=== PATIENT | female | born 1935 | race Caucasian/White ===

== ENCOUNTER 2025-06-27 10:09 | Observation (INO) ==
[2025-06-27] MEDS ORDERED: IOPAMIDOL 100 ML BOTTLE IV ONE (10:10)
[2025-06-27] MEDS: 0.9 % SODIUM CHLORIDE 1,000 ML IV ONE (10:43)
[2025-06-27 11:28] LABS: Basophils # (Auto) 0.02 K/mcL (0.00-0.30); Basophils % (Auto) 0.3 % (0.0-2.0); Eosinophils # (Auto) 0.05 K/mcL (0.00-0.70); Eosinophils % (Auto) 0.8 % (0.0-7.0); Hematocrit 48.3 % (34.1-44.9); Hemoglobin 16.0 g/dL (11.2-15.7); Lymphocytes # (Auto) 0.80 K/mcL (1.50-4.80); Lymphocytes % (Auto) 12.2 % (15.5-49.0); Mean Corpuscular HGB Conc 33.1 g/dL (31.0-36.0); Monocytes # (Auto) 0.45 K/mcL (0.10-0.90); Monocytes % (Auto) 6.9 % (1.0-12.0); Neutrophils % (Auto) 79.6 % (38.0-78.0); Platelet Count 266 K/mcL (140-440); RBC 5.23 M/mcL (3.59-5.38); WBC 6.5 K/mcL (4.5-11.0)
[2025-06-27 11:48] LABS: ALT/SGPT 13 U/L (<40); AST/SGOT 22 U/L (<32); Albumin 4.2 gm/dL (3.2-5.2); Albumin/Globulin Ratio 1.7 (1.0-2.3); Alkaline Phosphatase 118 U/L (39-117); Anion Gap 9.0 (8.0-16.0); Bilirubin,Total 0.8 mg/dL (0.1-1.0); Blood Urea Nitrogen 14 mg/dL (8-23); Calcium 9.2 mg/dL (8.6-10.4); Carbon Dioxide 28 mmol/L (22-30); Chloride 100 mmol/L (96-108); Globulin 2.5 gm/dL (2.2-3.7); Glucose 121 mg/dL (70-105); Potassium 4.1 mmol/L (3.3-5.1); Sodium 137 mmol/L (133-145)
[2025-06-27 11:59] LABS: INR 1.0 (0.9-1.1); Prothrombin Time 14.2 sec (11.9-14.5)
[2025-06-27 12:15] LABS: Bilirubin,Urine NEGATIVE (Negative); Color,Urine LT. YELLOW; Glucose,Urine (UA) NEGATIVE (Negative); Ketones,Urine NEGATIVE (Negative); Leukocyte Esterase,Urine NEGATIVE /uL (Negative); Mucus,Urine Few /hpf; PH,Urine 7.0 (5.0-9.0); Protein,Urine NEGATIVE (Negative); Specific Gravity,Urine 1.010 (1.000-1.035); Urobilinogen,Urine 0.2 mg/dL
[2025-06-27] MEDS ORDERED: ACETAMINOPHEN 325 MG TABLET PO PRN (16:31)
[2025-06-27] MEDS ORDERED: ONDANSETRON 4 MG/2 ML VIAL IV PRN (16:31)
[2025-06-27] MEDS: SENNOSIDES 1 TABLET PO SCH (21:23)
[2025-06-28] MEDS: 0.9 % SODIUM CHLORIDE 10 ML SYRINGE IV SCH (00:13)
[2025-06-28 06:33] LABS: ALT/SGPT 13 U/L (<40); AST/SGOT 17 U/L (<32); Albumin 4.0 gm/dL (3.2-5.2); Albumin/Globulin Ratio 1.8 (1.0-2.3); Alkaline Phosphatase 103 U/L (39-117); Anion Gap 10.0 (8.0-16.0); Bilirubin,Direct 0.3 mg/dL (<0.3); Bilirubin,Total 0.6 mg/dL (0.1-1.0); Blood Urea Nitrogen 16 mg/dL (8-23); Calcium 8.9 mg/dL (8.6-10.4); Carbon Dioxide 28 mmol/L (22-30); Chloride 102 mmol/L (96-108); Globulin 2.2 gm/dL (2.2-3.7); Glucose 90 mg/dL (70-105); Phosphorous 2.6 mg/dL (2.5-4.5); Potassium 3.5 mmol/L (3.3-5.1); Sodium 140 mmol/L (133-145); Triglycerides 60 mg/dL (<150); Uric Acid 5.9 mg/dL (2.5-8.0)
[2025-06-28 06:38] LABS: Basophils # (Auto) 0.02 K/mcL (0.00-0.30); Basophils % (Auto) 0.3 % (0.0-2.0); Eosinophils # (Auto) 0.13 K/mcL (0.00-0.70); Eosinophils % (Auto) 2.2 % (0.0-7.0); Hematocrit 45.6 % (34.1-44.9); Hemoglobin 15.2 g/dL (11.2-15.7); Lymphocytes # (Auto) 1.36 K/mcL (1.50-4.80); Lymphocytes % (Auto) 22.9 % (15.5-49.0); Mean Corpuscular HGB Conc 33.3 g/dL (31.0-36.0); Monocytes # (Auto) 0.57 K/mcL (0.10-0.90); Monocytes % (Auto) 9.6 % (1.0-12.0); Neutrophils % (Auto) 64.8 % (38.0-78.0); Platelet Count 253 K/mcL (140-440); RBC 4.98 M/mcL (3.59-5.38); WBC 6.0 K/mcL (4.5-11.0)
[2025-06-28 07:41] LABS: Estimated Average Glucose(eAG) 128 mg/dL; Hemoglobin A1C 6.1 % Hgb (4.0-6.0)
[2025-06-28] MEDS: ASPIRIN 81 MG TAB.CHEW PO SCH (08:41)
[2025-06-28] MEDS: METOPROLOL SUCCINATE 25 MG TAB.XL.24H PO SCH (08:42)
[2025-06-28] MEDS: ESCITALOPRAM 10 MG TABLET PO SCH (08:42)
[2025-06-28] MEDS: MEMANTINE 7 MG PO SCH (08:42)
[2025-06-28] MEDS: 0.9 % SODIUM CHLORIDE 1,000 ML IV SCH (11:39)
[2025-06-28] MEDS: ATORVASTATIN 10 MG TABLET PO SCH (21:41)
[2025-06-28] MEDS: DONEPEZIL 10 MG TABLET PO SCH (22:41)
[2025-06-29 08:01] VITALS: TEMP 98.1; O2SAT 98
== END 2025-06-29 09:30 | disposition home or self-care (01) ==
LOC: ED 10:09 → MEDSUR 10:09
PROVIDERS: ADMIT Internal Medicine; ATTEND Internal Medicine